=== PATIENT | female | born 1970 | race American Indian/Alaskan Native ===

== ENCOUNTER 2017-02-26 12:58 | Emergency (ER) | payer OTHER ==
[2017-02-26 13:16] VITALS: BP 119/78
--- NOTE | 2017-02-26 14:12 | Emergency Department Report ---
HPI - General Chief Complaint: Extremity Injury, Lower Time Seen by Provider: 02/26/17 13:35 - HPI HPI: 46-year-old female presents to the emergency department with complaint of swollen feet since last night, 4-5 days ago. Patient denies any trauma to the feet. She does admit to walking around on her feet all day. She has had this occur to her in the past but usually it will go away when she just rests. She still feels that they are swollen but says they are greatly improved when this first began for 5 days ago. She denies any past medical history. She does not have a primary care physician. She has not taken anything for symptoms prior to presentation. ED Past Medical Hx - Past Medical History Additional medical history: OBESITY - Surgical History Hx Cholecystectomy: Yes Additional Surgical History: HERNIA REPAIR - Social History Smoking Status: Current Every Day Smoker Substance Use Type: Alcohol, Cocaine - Medications Home Medications: Home Medications Medication Instructions Recorded Confirmed Last Taken Type Furosemide [Lasix] 20 mg PO QDAY #3 tablet 02/26/17 Unknown Rx ED Review of Systems ROS: Stated complaint: SWOLLEN FOOT Other details as noted in HPI Comment: All other systems reviewed and negative Constitutional: denies: chills, fever Eyes: denies: eye pain, eye discharge, vision change ENT: denies: ear pain, throat pain Respiratory: denies: cough, shortness of breath, wheezing Cardiovascular: edema. denies: chest pain Gastrointestinal: denies: abdominal pain, nausea, diarrhea Genitourinary: denies: urgency, dysuria, discharge Musculoskeletal: denies: back pain, joint swelling, arthralgia Skin: denies: rash, lesions Neurological: denies: headache, weakness, paresthesias Physical Exam - Physical Exam Vital Signs: Vital Signs 02/26/17 13:12 Temperature 97.8 F Pulse Rate 79 Respiratory 18 Rate Blood Pressure 119/78 O2 Sat by Pulse 100 Oximetry Physical Exam: GENERAL: The patient is well-developed well-nourished. HEENT: Normocephalic. Atraumatic. Extraocular motions are intact. Patient has moist mucous membranes. NECK: Supple. Trachea is midline. CHEST/LUNGS: Clear to auscultation. There is no respiratory distress noted. HEART/CARDIOVASCULAR: Regular. There is no tachycardia. There is no gallop rub or murmur. ABDOMEN: Abdomen is soft, nontender. Patient has normal bowel sounds. There is no abdominal distention. Obese habitus. SKIN: There is nonpitting swelling of the bilateral feet and 1+ swelling of the distal bilateral tib-fib. No erythema, bleeding, weeping or drainage. NEURO: The patient is awake, alert, and oriented. The patient is cooperative. The patient has no focal neurologic deficits. The patient has normal speech and gait. MUSCULOSKELETAL: There is no tenderness or deformity. There is no limitation range of motion. There is no evidence of acute injury. Pedal pulses +2 over 4 bilaterally. Cap refill less than 2 seconds. ED Course Vital Signs 02/26/17 13:12 Temperature 97.8 F Pulse Rate 79 Respiratory 18 Rate Blood Pressure 119/78 O2 Sat by Pulse 100 Oximetry ED Medical Decision Making - Lab Data Result diagrams: 02/26/17 13:47 - Medical Decision Making 46-year-old female presents with a few days of swelling to the bilateral feet and distal lower extremities. No shortness of breath or chest pain. Metabolic panel was normal. BNP not consistent with heart failure. Vital signs stable. Patient will be placed on 3 days of low-dose Lasix for diuresis. We discussed staying away from salt products and using elevation and compression. She was also given referrals for both primary care clinics and private physicians. - Differential Diagnosis CHF, venous stasis, obesity Critical Care Time: No Critical care attestation.: If time is entered above; I have spent that time in minutes in the direct care of this critically ill patient, excluding procedure time. ED Disposition Clinical Impression: Bilateral swelling of feet Disposition: DC-01 TO HOME OR SELFCARE Is pt being admited?: No Condition: Stable Instructions: Leg Edema (ED) Additional Instructions: Please follow-up with a primary care physician in next few days. Return to the emergency department with any worsening of her symptoms or any acute distress. Prescriptions: Furosemide [Lasix] 20 mg PO QDAY #3 tablet Referrals: TASHI SQUIRES MD [Primary Care Provider] - 3-5 Days RUT RANGEL JR, MD [Staff Physician] - 3-5 Days [facility] [Outside] - 3-5 Days Time of Disposition: 14:24
[2017-02-26 14:16] LABS: Anion Gap 17 mmol/L; BUN/Creatinine Ratio 12.22; Blood Urea Nitrogen 11 mg/dL (7-17); Calcium 8.9 mg/dL (8.4-10.2); Carbon Dioxide 26 mmol/L (22-30); Chloride 104.8 mmol/L (98-107); Glucose 77 mg/dL (65-100); Potassium 3.9 mmol/L (3.6-5.0); Sodium 144 mmol/L (137-145)
== END 2017-02-26 14:30 | disposition home or self-care (01) ==
LOC: ED 12:58
DX: R22.43 Localized swelling, mass and lump, lower limb, bilateral (principal); E66.9 Obesity, unspecified; F17.200 Nicotine dependence, unspecified, uncomplicated; F14.90 Cocaine use, unspecified, uncomplicated
CPT/HCPCS: 36415; 80048; 83880; 99283

== ENCOUNTER 2017-12-26 22:45 | Emergency (ER) | payer SELFPAY ==
[2017-12-27] LABS: Basophils # (Auto) 0.1 K/mm3 (0.0-0.1); Basophils % (Auto) 0.5 % (0.0-1.8); Eosinophils # (Auto) 0.1 K/mm3 (0.0-0.4); Eosinophils % (Auto) 1.2 % (0.0-4.3); Hematocrit 32.9 % (30.3-42.9); Hemoglobin 10.6 gm/dl (10.1-14.3); Lymphocytes # (Auto) 2.6 K/mm3 (1.2-5.4); Lymphocytes % (Auto) 26.6 % (13.4-35.0); Mean Corpuscular HGB Conc 32 % (30-34); Mean Corpuscular Hemoglobin 29 pg (28-32); Mean Corpuscular Volume 91 fl (79-97); Monocytes # (Auto) 0.8 K/mm3 (0.0-0.8); Monocytes % (Auto) 7.9 % (0.0-7.3); Platelet Count 200 K/mm3 (140-440); Red Blood Count 3.61 M/mm3 (3.65-5.03); Red Cell Distribution Width 14.2 % (13.2-15.2)
--- NOTE | 2017-12-27 02:45 | Emergency Department Report ---
HPI - General Chief Complaint: Vaginal Bleeding Time Seen by Provider: 12/27/17 02:24 - HPI HPI: Room 24 The patient is a 47-year-old female presenting with a chief complaint of heavy vaginal bleeding. The patient states her last menstrual cycle occurred 2017 was within normal limits. The patient states she began having vaginal bleeding again 12/15/2017 and has been bleeding daily since. The patient states she's gone through approximately 20 pads per day. Patient admits to nausea but denies vomiting. Patient denies pain stating only pain she has after eating in her left upper quadrant. Location: Genitourinary system Duration: Constant since 12/15/2017 Quality: Menorrhagia Severity: 20 pads per day Modifying factors: [see above] Context: [see above] Mode of transportation: [not driving] ED Past Medical Hx - Past Medical History Previous Medical History?: No Additional medical history: OBESITY - Surgical History Hx Cholecystectomy: Yes Additional Surgical History: HERNIA REPAIR , ovarian cyst removal - Family History Family history: no significant - Social History Smoking Status: Current Every Day Smoker (1/2 pack per day) Substance Use Type: Alcohol (occasional), Cocaine (last used yesterday) - Medications Home Medications: Home Medications Medication Instructions Recorded Confirmed Last Taken Type Furosemide [Lasix] 20 mg PO QDAY #3 tablet 02/26/17 Unknown Rx Famotidine [Pepcid] 20 mg PO BID #30 tablet 12/27/17 Unknown Rx medroxyPROGESTERone ACETATE 10 mg PO QDAY #10 tablet 12/27/17 Unknown Rx [Provera] ED Review of Systems ROS: Stated complaint: VAG BLEEDING Other details as noted in HPI Eyes: denies: eye pain ENT: denies: throat pain Cardiovascular: denies: chest pain Gastrointestinal: nausea. denies: vomiting Genitourinary: abnormal menses Musculoskeletal: denies: back pain Neurological: denies: headache Hematological/Lymphatic: easy bleeding Physical Exam - Physical Exam Vital Signs: Vital Signs 12/26/17 12/27/17 22:54 01:41 Temperature 98.3 F Pulse Rate 77 Respiratory 18 16 Rate Blood Pressure 117/77 O2 Sat by Pulse 99 99 Oximetry Physical Exam: GENERAL: The patient is well-developed well-nourished female lying on stretcher not appear to be in acute distress. [] HEENT: Normocephalic. Atraumatic. Extraocular motions are intact. Patient has moist mucous membranes. NECK: Supple. Trachea midline CHEST/LUNGS: Clear to auscultation. There is no respiratory distress noted. HEART/CARDIOVASCULAR: Regular. There is no tachycardia. There is no gallop rub or murmur. ABDOMEN: Abdomen is soft, nontender. Patient has normal bowel sounds. There is no abdominal distention. SKIN: There is no rash. There is no edema. There is no diaphoresis. NEURO: The patient is awake, alert, and oriented. The patient is cooperative. The patient has normal speech MUSCULOSKELETAL: There is no evidence of acute injury. GENITOURINARY: Small to moderate amount of dark red blood in the vaginal vault. No cervical lesions seen ED Course Vital Signs 12/26/17 12/27/17 22:54 01:41 Temperature 98.3 F Pulse Rate 77 Respiratory 18 16 Rate Blood Pressure 117/77 O2 Sat by Pulse 99 99 Oximetry ED Medical Decision Making - Lab Data Result diagrams: 12/26/17 23:28 - Radiology Data Radiology results: report reviewed (pelvic ultrasound), image reviewed (pelvic ultrasound) [address] [address] Ultrasound Report Signed Patient: RICHIE HARRIS MR#: [id number] : 1970 Acct:[id number] Age/Sex: 47 / F ADM Date: 12/26/17 Loc: ED Attending Dr: Ordering Physician: TRICIA LAGOS MD Date of Service: 12/27/17 Procedure(s): US pelvic complete Accession Number(s): [id number] cc: TRICIA LAGOS MD FINAL REPORT EXAM: US PELVIC COMPLETE HISTORY: menorrhagia TECHNIQUE: Transabdominal imaging was obtained the pelvis including Doppler interrogation of the adnexa. FINDINGS: The uterus is retroverted and enlarged measuring 11.5 cm x 6.5 cm x 5.9 cm. The endometrium is thickened 22.5 mm. The myometrium is homogeneous. Free fluid is not seen. The right ovary is normal size contour and echotexture measuring 2.7 cm x 2 cm x 2.6 cm. Blood flow is normal to the right ovary. The left ovary is enlarged measuring 7.1 cm x 4.7 cm x 5.5 cm. Within the left ovary is a complex cyst measuring 5.3 cm in diameter. There is also an anechoic cyst measuring 2.5 cm in diameter. The blood flow otherwise is normal to left ovary. IMPRESSION: Enlarged retroverted uterus with thickened endometrium measuring 22.5 mm. The endometrium otherwise is homogeneous in echotexture. Enlarged left ovary containing a dominant complex cyst measuring 5.3 cm in diameter and a smaller simple cyst measuring 2.5 cm in diameter. Repeat imaging of the pelvis is recommended after 1-2 menstrual cycles for further evaluation of the left adnexa. Transcribed By: RB Dictated By: ISABEL KEYS MD Electronically Authenticated By: ISABEL KEYS MD Signed Date/Time: 12/27/17332 DD/ 2 TD/TT: 12/27/17332 - Differential Diagnosis menorrhagia, uterine CA, missed AB, uterine fibroids Critical care attestation.: If time is entered above; I have spent that time in minutes in the direct care of this critically ill patient, excluding procedure time. ED Disposition Clinical Impression: Menorrhagia Disposition: TO HOME OR SELFCARE Is pt being admited?: No Does the pt Need Aspirin: No Condition: Stable Instructions: Peptic Ulcer (ED), Gastritis (ED), Menorrhagia (ED) Additional Instructions: Return to the emergency department immediately should you develop worsening symptoms, fever, inability to tolerate food or liquid or any other concerns. Prescriptions: Famotidine [Pepcid] 20 mg PO BID #30 tablet medroxyPROGESTERone ACETATE [Provera] 10 mg PO QDAY #10 tablet Referrals: HAKEEM BERGERON MD [Staff Physician] - [facility] (Dr Bergeron is an [employer]. Please follow up with him for further evaluation) BROOKE GUNTER MD [Staff Physician] - 3-5 Days (Dr Gunter is a primary physician. Please follow up with him to be established as a patient) ANDIE HURT MD [Staff Physician] - 3-5 Days (Dr. Hurt is a endband cutter hand. Please follow-up with him for further evaluation of your abdominal pain after eating) Time of Disposition: 04:36
[2017-12-27 02:57] LABS: Bilirubin,Urine NEG (Negative); Blood,Urine LG (Negative); Color,Urine Red (Yellow); Urobilinogen,Urine < 2.0 mg/dL (<2.0)
[2017-12-27 03:01] LABS: RBC,Urine > 182.0 /HPF (0.0-6.0); WBC,Urine < 1.0 /HPF (0.0-6.0)
[2017-12-27] MEDS ORDERED: DILAUDID IV PRN (03:27)
--- NOTE | 2017-12-27 03:38 | Ultrasound Report ---
FINAL REPORT EXAM: US PELVIC COMPLETE HISTORY: menorrhagia TECHNIQUE: Transabdominal imaging was obtained the pelvis including Doppler interrogation of the adnexa. FINDINGS: The uterus is retroverted and enlarged measuring 11.5 cm x 6.5 cm x 5.9 cm. The endometrium is thickened 22.5 mm. The myometrium is homogeneous. Free fluid is not seen. The right ovary is normal size contour and echotexture measuring 2.7 cm x 2 cm x 2.6 cm. Blood flow is normal to the right ovary. The left ovary is enlarged measuring 7.1 cm x 4.7 cm x 5.5 cm. Within the left ovary is a complex cyst measuring 5.3 cm in diameter. There is also an anechoic cyst measuring 2.5 cm in diameter. The blood flow otherwise is normal to left ovary. IMPRESSION: Enlarged retroverted uterus with thickened endometrium measuring 22.5 mm. The endometrium otherwise is homogeneous in echotexture. Enlarged left ovary containing a dominant complex cyst measuring 5.3 cm in diameter and a smaller simple cyst measuring 2.5 cm in diameter. Repeat imaging of the pelvis is recommended after 1-2 menstrual cycles for further evaluation of the left adnexa.
--- NOTE | 2017-12-27 04:34 | Ultrasound Report ---
FINAL REPORT EXAM: US TRANSVAGINAL HISTORY: menorrhagia TECHNIQUE: Routine transvaginal imaging was obtained of the pelvis along with Doppler interrogation of the adnexa. FINDINGS: The uterus is enlarged and retroverted measuring 11.5 cm x 6.5 cm x 5.9 cm. The endometrium is thickened at 22.5 mm. It is homogeneous in echotexture. The myometrium is homogeneous. Free fluid is not seen. The right ovary is normal size contour blood flow and echotexture measuring 2.7 cm x 2 cm x 2.6 cm. The left ovary is enlarged measuring 7.1 cm x 4.7 cm x 5.5 cm. There is a 2.5 cm anechoic cyst in left ovary. There is also a complex heterogeneous cyst measuring up to 5.3 cm in diameter. The blood flow is normal to left ovary otherwise. IMPRESSION: Enlarged left ovary containing a complex cyst measuring to 5.3 cm in diameter and a smaller simple cyst measuring 2.5 cm in diameter. Repeat imaging of the pelvis recommended 1-2 menstrual cycles to determine interval change. Normal right ovary. Enlarged uterus with thickened endometrium measuring 22.5 mm. The echotexture of the endometrium otherwise is homogeneous.
[2017-12-27 05:55] VITALS: BP 147/94
== END 2017-12-27 05:30 | disposition home or self-care (01) ==
LOC: ED 22:45
DX: N92.0 Excessive and frequent menstruation with regular cycle (principal); F17.210 Nicotine dependence, cigarettes, uncomplicated; F14.10 Cocaine abuse, uncomplicated; Z90.49 Acquired absence of other specified parts of digestive tract
CPT/HCPCS: 36415; 76830; 76856; 81001; 84703; 85025; 86850; 86900; 86901; 99284